=== PATIENT | female | born 1955 | race Hispanic/Latino ===

== ENCOUNTER 2023-10-22 11:21 | Emergency (ER) | payer MEDICAID, SELFPAY ==
--- NOTE | ~2023-10-22 | XR_ITS ---
EXAMINATION: XR chest 2V DATE: 10/22/2023 12:39 INDICATION: Cough TECHNIQUE: PA and lateral views of the chest were obtained. COMPARISON: None FINDINGS: The lungs are clear with no focal airspace opacities, pulmonary edema, pleural effusion or pneumothor ax. The cardiomediastinal silhouette is normal. There are bridging osteophytes at multiple levels in the thoracic spine consistent with diffuse idiopathic skeletal hyperostosis (DISH). IMPRESSION: 1. No acute cardiopulmonary disease. Reviewed, dictated and finalized at location A. [employer]
[2023-10-22 11:39] VITALS: BP 168/79; PULSE 98; RESP 18; TEMP 38.5; O2SAT 99
--- NOTE | 2023-10-22 12:30 | ED.URI ---
HPI - URI/Sore Throat General Chief Complaint: Upper Respiratory Infection Stated Complaint: Sinus/Cough Time Seen by Provider: 10/22/23 12:25 Source: patient and RN notes reviewed Mode of arrival: ambulatory Limitations: no limitations History of Present Illness HPI Narrative: Patient presents today complaining of a 1.5 month history of cough and nausea. She started running a fever yesterday with T-max of 101.3?. She also reports some mild left ear pain and sore throat. Denies shortness of breath. She has tried no [id number] medication for symptoms prior to arrival. Related Data Allergies Allergy/AdvReac Type Severity Reaction Status Date / Time No Known Allergies Allergy Verified 10/22/23 11:38 Review of Systems Review of Systems: CONSTITUTIONAL: Denies body aches, chills, or sweats.+ fever EYES: Denies visual changes, redness, or discharge. ENT: Denies rhinorrhea, congestion. + sore throat, left ear pain CARDIOVASCULAR: Denies chest pain, palpitations, or edema. RESPIRATORY: Denies dyspnea. GASTROINTESTINAL: Denies abdominal pain, vomiting, or diarrhea.+ nausea GENITOURINARY: Denies dysuria or hematuria. SKIN: Denies rash, itching, or wounds. MUSCULOSKELETAL: Denies back pain, joint pain, or myalgia. NEUROLOGIC: Denies headache, numbness, tingling, or weakness. PSYCH: Denies depression or anxiety. PMFSH Comments At time of signature, I have reviewed and agree with nursing past medical, surgical, social and family history unless otherwise noted. Please see nursing chart for further information. There is no relevant family history pertinent to the presenting complaint Exam Narrative: GENERAL: Well-appearing, well-nourished, and in no acute distress. HEAD: Normocephalic, atraumatic. EYES: EOMI. No redness or drainage. Conjunctivae normal. ENT: Mucous membranes pink and moist. Nares clear. No rhinorrhea. TMs normal bilaterally. Throat normal. Uvula midline. NECK: Normal AROM. Supple. No lymphadenopathy. CHEST: No respiratory distress. Diminished in the bilateral bases, otherwise clear. HEART: Regular rate and rhythm. No murmur appreciated. EXTREMITIES: Normal range of motion. No edema. SKIN: Warm, dry, no rash. Capillary refill normal. Normal skin turgor. NEURO: No focal deficits. Alert and oriented x3. Gait steady. PSYCH: Normal affect. No signs of depression or anxiety. Course Course Level of Care: Express Care Visit Vital Signs Vital signs: Vital Signs Temperature 101.3 F H 10/22/23 11:39 Pulse Rate 98 10/22/23 11:39 Respiratory Rate 18 10/22/23 11:39 Blood Pressure 168/79 H 10/22/23 11:39 Pulse Oximetry 99 10/22/23 11:39 Oxygen Delivery Room Air 10/22/23 11:39 Temperature 101.3 F H 10/22/23 11:39 Pulse Rate 98 10/22/23 11:39 Respiratory Rate 18 10/22/23 11:39 Blood Pressure 168/79 H 10/22/23 11:39 Pulse Oximetry 99 10/22/23 11:39 Oxygen Delivery Room Air 10/22/23 11:39 Reviewed MDM - URI/Sore Throat MDM Narrative Medical decision making narrative: Influenza and COVID-19 negative. Differential Diagnosis Differential diagnosis: Likely upper respiratory infection, viral infection, influenza and other (COVID-19, pneumonia) Medical Records Medical records narrative: Chest x-ray negative for pneumonia. Will treat patient with Augmentin and prednisone for her persistent cough and new onset fever. She also would like some cough medicine. Lab Data Attestation: I reviewed the patient's lab results. Labs: Lab Results 10/22/23 Range/Units 11:50 POC SARS CoV-2 Ag Negative (Negative) Influenza A Screen Negative Reference Range: Negative Influenza B Screen Negative Reference Range: Negative Imaging Data Radiologist's impression: ITS Impressions Chest X-Ray 10/22/23 13:06 MARISA
== END 2023-10-22 13:28 | disposition home or self-care (01) ==
PROVIDERS: Emergency Provider Nurse Practitioner
DX: J22 Unspecified acute lower respiratory infection (principal); Z20.822 Contact with and (suspected) exposure to COVID-19
CPT/HCPCS: 71046; 87426; 87804; 99203; C9803; G0463